=== PATIENT | male | born 1965 ===

== ENCOUNTER 2024-09-07 09:15 | Inpatient (IN) | payer OTHER ==
[~2024-09-07] VITALS: Ht 172.7 cm; Wt 79.4 kg
[2024-09-07 10:59] LABS: BASO % 0.6 % (0.1-1.2); EOS # 0.22 (0.04-0.54); EOS % 2.8 % (0.7-7.0); HEMATOCRIT 40.5 % (40.1-51.0); HEMOGLOBIN 13.2 g/dL (13.7-17.5); LYMPH # 3.39 (1.18-3.74); LYMPH % 43.5 % (19.3-53.1); MEAN CORPUSCULAR HEMOGLOBIN 21.8 pg (25.6-32.2); MONO # 0.87 (0.24-0.82); MONO % 11.2 % (4.7-12.5); NEUT # 3.24 (1.56-6.13); NEUT % 41.5 % (34.0-71.1); PLATELET COUNT 240 K/uL (163-369); RED BLOOD COUNT 6.05 M/uL (4.63-6.08); RED CELL DISTRIBUTION WIDTH 16.8 % (11.6-14.4)
[2024-09-07] MEDS ORDERED: ASA81 MG PO (11:05)
[2024-09-07] MEDS ORDERED: BUSPIRONE HCL15 MG PO (11:05)
[2024-09-07 11:12] VITALS: BP 184/85
[2024-09-07 11:27] LABS: COVID-19 AG NEGATIVE (NEGATIVE)
[2024-09-07 11:40] LABS: INR 0.97; PARTIAL THROMBOPLASTIN TIME 24.9 SECONDS (22.0-34.0); PROTHROMBIN TIME 10.6 SECONDS (9.0-11.5)
[2024-09-07 11:49] LABS: CALCIUM 9.4 mg/dL (8.5-10.1); CREATININE SERUM 0.77 mg/dL (0.70-1.30); GFR 102.71; POTASSIUM 4.25 mEq/L (3.5-5.1)
[2024-09-07 11:51] LABS: RH POSITIVE
[2024-09-07 12:15] LABS: PH,URINE 5.5 (5.0-8.0); URINE APPEARANCE Clear; URINE BILIRRUBIN Negative (NEGATIVE); URINE BLOOD Negative; URINE COLOR Dark Yellow; URINE GLUCOSE Negative (NEGATIVE); URINE KETONE Negative (NEGATIVE); URINE LEUKOCYTE Negative; URINE NITRATE Negative; URINE PROTEIN Negative (NEGATIVE); URINE UROBILINOGEN 0.2 E.U./dl
[2024-09-07 12:38] LABS: URINE BACTERIA 2.4 uL (0.0-1933); URINE EPITHELIAL CELLS 0.4 uL (0.0-38.8); URINE RBC 1.9 uL (0.0-20.8)
[2024-09-13] MEDS ORDERED: HEMOSTATIC MATRIX 1 KIT KIT TOP ONE (11:20)
[2024-09-13] MEDS ORDERED: CEFAZOLIN SODIUM 1,000 MG VIAL ONE ×2 (11:20→22:01)
[2024-09-13] MEDS ORDERED: BUPIVACAINE HCL/MPF 0.5% 30ML VIAL ONE (11:20)
[2024-09-13] MEDS ORDERED: ENOXAPARIN SODIUM 40 MG/0.4 ML SYRINGE SUBCUTANEO ONE (11:56)
[2024-09-13] MEDS ORDERED: SURGIFLO APPLICATOR 1 EACH APPL TOP ONE (11:56)
[2024-09-13] MEDS ORDERED: SUGAMMADEX SODIUM 200 MG/2 ML VIAL IV ONE (18:07)
[2024-09-13] MEDS ORDERED: ONDANSETRON HCL 2 MG/ML VIAL IV PRN (18:15)
[2024-09-13] MEDS ORDERED: RINGERS SOLUTION,LACTATED 1,000 ML IV SCH (18:15)
[2024-09-13] MEDS ORDERED: OxyCODONE HCL/APAP UD (PERCOCET) PO PRN (18:15)
[2024-09-13] MEDS ORDERED: MORPHINE SULFATE 4 MG/ML CARTRIDGE IV PRN (18:15)
[2024-09-13] MEDS ORDERED: FAMOTIDINE/PF 20 MG/2 ML VIAL IV SCH (21:00)
[2024-09-13] MEDS ORDERED: CEFAZOLIN SODIUM 1,000 MG VIAL IV SCH (21:00)
[2024-09-13] MEDS ORDERED: MORPHINE SULFATE 4 MG/ML VIAL IV ONE (21:10)
[2024-09-13] MEDS ORDERED: FAMOTIDINE/PF 20 MG/2 ML VIAL ONE (22:01)
[2024-09-13 22:22] VITALS: BP 137/84; O2SAT 97
[2024-09-14] MEDS ORDERED: GABAPENTIN 300 MG CAPSULE PO SCH (01:00)
[2024-09-14 01:41] VITALS: BP 123/75; O2SAT 100
[2024-09-14 08:00] VITALS: BP 119/65; O2SAT 94
[2024-09-14] MEDS ORDERED: BUSPIRONE HCL 15 MG TABLET PO SCH (09:00)
[2024-09-14] MEDS ORDERED: ENOXAPARIN SODIUM 40 MG/0.4 ML SYRINGE SUBCUTANEO SCH (09:00)
[2024-09-14 09:23] LABS: ALBUMIN 3.2 gm/dL (3.4-5.0); CALCIUM 8.4 mg/dL (8.5-10.1); CREATININE SERUM 0.73 mg/dL (0.70-1.30); GFR 109.23; PHOSPHOROUS 3.2 mg/dL (2.5-4.9); POTASSIUM 4.43 mEq/L (3.5-5.1)
[2024-09-14 11:32] LABS: BASO % 0.2 % (0.1-1.2); EOS # 0.07 (0.04-0.54); EOS % 0.7 % (0.7-7.0); HEMATOCRIT 36.6 % (40.1-51.0); LYMPH # 1.49 (1.18-3.74); LYMPH % 15.1 % (19.3-53.1); MEAN CORPUSCULAR HEMOGLOBIN 21.8 pg (25.6-32.2); MONO # 0.75 (0.24-0.82); MONO % 7.6 % (4.7-12.5); NEUT # 7.49 (1.56-6.13); PLATELET COUNT 225 K/uL (163-369); RED CELL DISTRIBUTION WIDTH 15.9 % (11.6-14.4)
[2024-09-14] MEDS ORDERED: POLYETHYLENE GLYCOL 3350 17 GM BLIST.PACK PO SCH (17:00)
== END 2024-09-14 14:29 | disposition home or self-care (01) | DRG 708 ==
LOC: SURH 09-13 06:05 → O/R 09-13 06:05 → SURH 09-13 07:00
PROVIDERS: ADMIT Urology; ATTEND Urology
PROC: 8E0W4CZ Robotic Assisted Procedure of Trunk Region, Percutaneous Endoscopic Approach (ICD-10-PCS; 2024-09-13)
PROC: 0VT04ZZ Resection of Prostate, Percutaneous Endoscopic Approach (ICD-10-PCS; principal; 2024-09-13 07:00)
DX: C61 Malignant neoplasm of prostate (principal)
CPT/HCPCS: 55866; S2900

== ENCOUNTER 2024-09-25 08:30 | Outpatient (CLI) | payer OTHER ==
[~2024-09-25 08:30] MED LIST: ASA81 MG PO; BUSPIRONE HCL15 MG PO
== END 2024-09-25 08:59 | disposition home or self-care (01) ==
LOC: TOM 08:30
PROVIDERS: ATTEND Urology
DX: C61 Malignant neoplasm of prostate (principal)